=== PATIENT | male | born 1985 | race Caucasian/White ===

== ENCOUNTER 2020-03-19 14:07 | Inpatient (IN) | payer OTHER, SELFPAY ==
[~2020-03-19] VITALS: Ht 190.5 cm; Wt 110.0 kg
--- NOTE | 2020-03-19 14:44 | NUR ---
PT TEARFUL STATES "I USED HEROIN EARLIER TODAY, I WANT TO STOP THOUGH". 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
[2020-03-19] MEDS ORDERED: SODIUM CHLORIDE 0.9% 1,000ML IVBOLUS ONE ×2 (15:30→18:30)
--- NOTE | 2020-03-19 15:34 | NUR ---
PT TO XRAY VIA [facility]
[2020-03-19 15:35] LABS: HCT (SEDRATE) 46.2 % (39.2-51.8)
[2020-03-19 15:36] LABS: MEAN CORPUSCULAR HEMOGLOBIN 31.7 pg (27.5-34.5); MEAN CORPUSCULAR HGB CONC 32.6 g/dL (33.2-36.2); MEAN CORPUSCULAR VOLUME 97.2 fL (81-97); MEAN PLATELET VOLUME 7.4 fL (7.4-10.4); PLATELET COUNT 175 x10^3/uL (130-400); RED BLOOD COUNT 4.82 x10^6/uL (4.38-5.82); RED CELL DISTRIBUTION WIDTH 13.6 % (9.4-14.8)
[2020-03-19 15:43] LABS: MD YES
[2020-03-19 15:49] LABS: ALANINE AMINOTRANSFERASE 180 U/L (12-78); ALBUMIN 3.1 g/dL (3.4-5.0); ANION GAP 5 mmol/L (5-15); CALCIUM 8.1 mg/dL (8.5-10.1); CHLORIDE 108 mmol/L (98-107); CREATININE 1.25 mg/dL (0.7-1.3)
[2020-03-19 15:51] LABS: ALKALINE PHOSPHATASE 44 U/L (45-117); BILIRUBIN,TOTAL 0.5 mg/dL (0.2-1.0); CREATINE KINASE, TOTAL 976 U/L (39-308); TOTAL PROTEIN 6.2 g/dL (6.4-8.2)
[2020-03-19] MEDS ORDERED: SODIUM CHLORIDE FLUSH 10ML SYR IVF ONE ×2 (16:00→17:00)
[2020-03-19 16:22] LABS: BAND#(MANUAL) 4.04 x10^3/uL; BANDS%(MANUAL) 15 % (0-7); LYMPH#(MANUAL) 1.35 x10^3/uL (1-3.4); LYMPHS% (MANUAL) 5 % (22-44); METAMYELOCYTES# (MANUAL) 0.54 x10^3/uL (0-0); METAMYELOCYTES% (MANUAL) 2 % (0-1); MONOS#(MANUAL) 1.35 x10^3/uL (0.3-2.7); MONOS% (MANUAL) 5 % (2-9); SEG#(MANUAL) 19.64 x10^3/uL (1.8-6.8); SEGS% (MANUAL) 73 % (42-75)
[2020-03-19 16:23] LABS: <PLATELET ESTIMATE> ADEQUATE; <PLT MORPHOLOGY> NORMAL PLT MORPH; ANISOCYTOSIS 1+; PMNS WITH VACUOLES 1+; POLYCHROMASIA 1+
[2020-03-19] MEDS ORDERED: CEFTRIAXONE PMX 1GM/50ML 50 ML IVPB ONE (17:00)
[2020-03-19] MEDS ORDERED: CEFTRIAXONE PMX 1GM/50ML 50 ML ONE (17:25)
--- NOTE | 2020-03-19 17:51 | NUR ---
LAB CALLED WITH CRITICAL RESULT OF 97.84 FOR PCT.
--- NOTE | 2020-03-19 17:56 | NUR ---
TASK RN: RAISA UPDATED ON CRITICAL VALUE, NO ADDITIONAL ORDERS AT THIS TIME
--- NOTE | 2020-03-19 18:02 | NUR ---
TASK RN: ERMD IN TO UPDATE PT ON POC, PLAN FOR ADMISSION. WATER PROVIDED TO PT PER MD WALTON
[2020-03-19 18:33] LABS: MICROSCOPIC INDICATED
--- NOTE | 2020-03-19 18:38 | NUR ---
SEPSIS FLOWSHEET STARTED AND PLACED ON CHART.
--- NOTE | 2020-03-19 19:14 | NUR ---
PT TO CT. RECEIVED REPORT FROM FITZ COATS.
[2020-03-19] MEDS ORDERED: OMNIPAQUE 350 MG/ML, 100ML BOTTLE ONE (19:27)
--- NOTE | 2020-03-19 19:39 | NUR ---
PAWEL FROM [facility] AT BEDSIDE.
--- NOTE | 2020-03-19 20:15 | NUR ---
CT CHEST ADDED ON AFTER PNEUMONIA FOUND ON CT OF THE ABDOMEN IN BASES OF LUNGS. PT MADE A COVID R/O PER PAWEL JACK OF [facility] AND RAPID PCR SWAB COLLECTED.
[2020-03-19] MEDS ORDERED: PIPERACILLIN/TAZO/PMX 3.375GM 50 ML ONE (20:21)
[2020-03-19] MEDS: PIPERACILLIN/TAZO/PMX 3.375GM 50 ML IV SCH (20:26)
[2020-03-19] MEDS ORDERED: ONDANSETRON ODT 4 MG PO PRN (20:30)
[2020-03-19] MEDS ORDERED: VANCOMYCIN PER PHARMACY MC PRN (20:30)
[2020-03-19] MEDS ORDERED: BISACODYL 10 MG SUPP PR PRN (20:30)
[2020-03-19] MEDS ORDERED: ACETAMINOPHEN 325 MG TABLET PO PRN (20:30)
[2020-03-19] MEDS ORDERED: POLYETHYLENE GLYCOL 17 GM PACKET PO PRN (20:30)
--- NOTE | 2020-03-19 20:35 | NUR ---
PT TO CT.
[2020-03-19] MEDS ORDERED: OMNIPAQUE 350 MG/ML, 75ML BOTTLE ONE (20:50)
--- NOTE | 2020-03-19 21:00 | NUR ---
PT BACK FROM CT. REGULAR DIET ORDERED BY PAWEL JACK AND PT GIVEN SANDWICH FROM [employer].
[2020-03-19 22:05] VITALS: BP 130/74
[2020-03-19] MEDS: SODIUM CHLORIDE 0.9% 1,000 ML IV SCH (22:10)
[2020-03-19] MEDS ORDERED: PHARMACOKINETIC CONSULTATION MC ONE (22:30)
[2020-03-19] MEDS ORDERED: PHARMACOKINETIC MONITORING MC PRN (22:30)
[2020-03-19] MEDS: HEPARIN 5,000 UNITS/ML, 1ML SQ SCH (22:40)
[2020-03-19] MEDS ORDERED: VANCOMYCIN 2,200 MG in SODIUM CHLORIDE 0.9% 500 ML IV ONE (22:45)
[2020-03-20 00:30] VITALS: BP 143/63
[2020-03-20] MEDS: PIPERACILLIN/TAZO/PMX 3.375GM 50 ML IV SCH ×3 (02:40→14:47)
[2020-03-20] MEDS: HEPARIN 5,000 UNITS/ML, 1ML SQ SCH ×2 (03:19→12:30)
[2020-03-20 06:31] LABS: MEAN CORPUSCULAR HEMOGLOBIN 31.9 pg (27.5-34.5); MEAN CORPUSCULAR HGB CONC 32.8 g/dL (33.2-36.2); MEAN CORPUSCULAR VOLUME 97.1 fL (81-97); MEAN PLATELET VOLUME 7.4 fL (7.4-10.4); PLATELET COUNT 168 x10^3/uL (130-400); RED CELL DISTRIBUTION WIDTH 14.2 % (9.4-14.8)
[2020-03-20 06:38] LABS: ALANINE AMINOTRANSFERASE 130 U/L (12-78); ALBUMIN 2.6 g/dL (3.4-5.0); ANION GAP 5 mmol/L (5-15); CALCIUM 7.7 mg/dL (8.5-10.1); CHLORIDE 110 mmol/L (98-107)
[2020-03-20 06:42] LABS: ALKALINE PHOSPHATASE 42 U/L (45-117); BILIRUBIN,TOTAL 0.3 mg/dL (0.2-1.0); CREATINE KINASE, TOTAL 537 U/L (39-308); CREATININE 1.01 mg/dL (0.7-1.3); TOTAL PROTEIN 5.4 g/dL (6.4-8.2)
[2020-03-20 06:59] LABS: MD YES
[2020-03-20 07:04] LABS: BASOS#(MANUAL) 0.14 x10^3/uL (0-0.1); BASOS% (MANUAL) 1 % (0-1); LYMPHS% (MANUAL) 14 % (22-44); MONOS% (MANUAL) 7 % (2-9); SEG#(MANUAL) 11.15 x10^3/uL (1.8-6.8); SEGS% (MANUAL) 78 % (42-75)
[2020-03-20 07:05] LABS: <PLATELET ESTIMATE> ADEQUATE; <PLT MORPHOLOGY> NORMAL PLT MORPH; POLYCHROMASIA 1+
[2020-03-20] MEDS: SODIUM CHLORIDE 0.9% 1,000 ML IV SCH (07:22)
[2020-03-20] MEDS: OXYcodone IR 5MG TABLET PO PRN ×3 (08:24→14:08)
[2020-03-20 08:32] VITALS: BP 138/82
[2020-03-20] MEDS ORDERED: SENNA/DOCUSATE TABLET PO SCH (09:00)
[2020-03-20] MEDS ORDERED: TAMSULOSIN 0.4 MG CAP.ER.24H PO SCH (09:30)
[2020-03-20] MEDS ORDERED: VANCOMYCIN 2,200 MG in SODIUM CHLORIDE 0.9% 500 ML IV SCH (10:00)
[2020-03-20 13:00] VITALS: BP 133/88
[2020-03-20] MEDS ORDERED: HEPA50002 SQ (14:40)
[2020-03-20] MEDS ORDERED: PIPE4.5F2 IVPB (14:40)
[2020-03-20] MEDS ORDERED: ACET325T26 PO (14:40)
[2020-03-20] MEDS ORDERED: VANC2PLA5 IV (14:40)
[2020-03-20] MEDS ORDERED: OXYC5TAB3 PO (14:40)
== END 2020-03-20 17:10 | disposition short-term general hospital (02) | DRG 871 ==
LOC: ED 17:57 → EDIP 19:04 → 4EST 21:57
PROVIDERS: ADMIT Student in an Organized Health Care Education/Training Program; ATTEND Student in an Organized Health Care Education/Training Program
DX: A41.9 Sepsis, unspecified organism (principal); J15.9 Unspecified bacterial pneumonia; B19.20 Unspecified viral hepatitis C without hepatic coma; D75.89 Other specified diseases of blood and blood-forming organs; F11.10 Opioid abuse, uncomplicated; I51.7 Cardiomegaly; Z20.828 Contact with and (suspected) exposure to other viral communicable diseases; Z72.0 Tobacco use; Z80.0 Family history of malignant neoplasm of digestive organs; Z80.1 Family history of malignant neoplasm of trachea, bronchus and lung; Z80.3 Family history of malignant neoplasm of breast; Z80.42 Family history of malignant neoplasm of prostate; Z86.19 Personal history of other infectious and parasitic diseases; Z91.19 Patient's noncompliance with other medical treatment and regimen
CPT/HCPCS: 36415; 71275; 74022; 74177; 76700; 80053; 80074; 81001; 82550; 82607; 83605; 83690; 84145; 85025; 85651; 87040; 87086; 87521; 87635; 87806; 93005; 93306; G0378; J0696; J2543; J3370; Q9967; G0475; J7030; J7040